=== PATIENT | male | born 1955 | race Caucasian/White ===

== ENCOUNTER 2021-03-26 09:15 | Inpatient (IN) | payer OTHER ==
[2021-03-26] VITALS (22 sets, daily range): BP systolic 136–214; BP diastolic 68–147
[~2021-03-26] VITALS: Ht 180.3 cm; Wt 79.2 kg
--- NOTE | ~2021-03-26 | CON ---
[address] [address] CONSULTATION Name: PILY GUY Room: [place] [address] ADM IN M.R.#: [id number] Admission: 03/26/21 Attend Phys: Norma Lopez Discharge: Date of : 51 Report #: [id number] THIS REPORT FOR: cc: FAM - No family physician/PCP FAM - No family physician/PCP Luis Joya MD ~ DATE OF CONSULTATION: 03/26/2021 HISTORY OF PRESENT ILLNESS: This is a 66-year-old male patient who was seen by me in the Emergency Room. This patient was seen in the Emergency Room by Emergency Room physician for what looks like NIH score of 5. He underwent a CT and CT angiogram. CT is available. CT angiogram is not available. As I understand after discussing indication, potential complication and alternative with the patient, the ER physician gave him TPA. TPA has already infused and the patient is not having any significant side effect. He still has pronounced symptoms in the left upper extremity. Part of it is because of pain, which is nonspecific, but pretty profound weakness there. He had some symptoms in the left leg earlier, but it is difficult to tell because he had back surgery in the past. He had trouble with the knee and there is a wire there, but he had MRI of the back in the past without any problem. That wire was still in when he had MRI of the lumbar spine. REVIEW OF SYSTEMS: He was told a couple of times that he had hypertension. He does not have a family doctor. He does not go to any family doctor. He does not know when his last blood pressure was checked. It was probably long time ago. He does not check it at home or at any pharmacy. That was his relevant 14-point review of systems. PAST MEDICAL HISTORY: Positive for lumbar spine problem. He has mild neck pain. He gives a history that he was up when his symptoms came suddenly. FAMILY HISTORY: Unremarkable. SOCIAL HISTORY: He says he smokes marijuana once in a while because of his back pain. He does not smoke cigarettes. He does not drink alcohol on a regular basis. PHYSICAL EXAMINATION: NEUROLOGIC: He is alert, responsive, able to follow simple and complex command. Cranial nerve examination appear unremarkable. His memory looks unremarkable. He has pretty significant weakness in the left upper extremity, he can move it, but rarely. His neck movements are full and unrestricted. These deficit came suddenly at 8:00. In the left leg, he is somewhat weak than the right side, but I do not know what his baseline is, but the weakness is more pronounced in the left upper extremity. He cannot do [id number] on the left side, [place] [address] CONSULTATION Name: MALENAPILY [place] Room: [address] [place] [facility]#: [id number] Admission: 03/26/21 Attend Phys: Norma Lopez Discharge: Date of : 51 Report #: [id number] also weak there. His sensation is altered, but difficult to tell further because he is also complaining of pain there. I could not look at the fundus. CARDIAC: Appears unremarkable. LUNGS: No respiratory difficulty was noticed. VITAL SIGNS: Blood pressure is 170/80, pulse is 83, temperature is 98.2. LABORATORY DATA: Indicates a normal white count, a normal platelet and a normal PT, PTT. CT showed a question of old CVA. CT angiogram is not available. IMPRESSION AND PLAN: Clinically, it would appear that the patient may have had a lacunar cerebrovascular accident. The unusual feature is that he does have some neck pain and only arm is involved. Because of that, we need to rule out the C-spine pathology. I discussed with the patient ____. I am going to get an MRI of the brain as well as C-spine stat in this patient that will give us some directions where the patient's symptoms are coming from and we can proceed accordingly. Thank you very much for this referral. By: [id number]-pierre Joya MD /rodo
[~2021-03-26 09:15] MED LIST: FLEXERIL PO; NAPROSYN250 MG PO; NOHOMEMEDICATIONS
[2021-03-26 10:04] LABS: ABSOLUTE EOSINOPHILS 0.1 thou/uL (0.0-0.7); ABSOLUTE LYMPHOCYTES 1.9 thou/uL (0.8-5.3); ABSOLUTE MONOCYTES 0.5 thou/uL (0.0-1.2); ABSOLUTE NEUTROPHILS 5.3 thou/uL (1.6-8.1); BASOPHILS 0.5 %; EOSINOPHILS 1.3 %; HEMATOCRIT 46.6 % (42.0-52.0); HEMOGLOBIN 15.9 gm/dL (14.0-18.0); LYMPHOCYTES 24.4 %; MCHC 34.2 g/dL (28.0-37.0); MCV 93.6 fL (80.0-100.0); MONOCYTES 6.7 %; MPV 8.6 fl. (7.2-11.1); NUCLEATED RBCS 0 /100WBC; PLATELET COUNT* 209 thou/uL (150-400); POLYS 67.1 %; RBC 4.97 mil/uL (4.50-6.00); RDW-CV 12.6 % (10.5-14.5); WBC 7.9 thou/uL (4.0-11.0)
[2021-03-26 10:16] LABS: ALBUMIN 4.7 g/dL (3.4-5.0); CALCIUM 9.6 mg/dL (8.5-10.1); POTASSIUM 4.1 mmol/L (3.5-5.1); TOTAL BILIRUBIN 0.7 mg/dL (<0.1-1.0); TOTAL PROTEIN 8.3 g/dL (6.4-8.2)
[2021-03-26 10:24] LABS: APTT 27.2 Seconds (25.0-31.3); INR 1.1; PROTIME 11.3 Seconds (9.20-11.50)
--- NOTE | 2021-03-26 10:40 | EKG ---
[place] [address] ELECTROCARDIOGRAM REPORT Name: PILY GUY Room: [facility]#: [id number] Admission: Attend Phys: Discharge: Date of : 51 Date of Service: 03/26/21928 Report #: [id number] THIS REPORT FOR: //name// [facility] ED Test Date: 2021-03-26 Test Time: 09:29:55 Pat Name: PILY GUY Department: Room: Gender: Retail Security Professional: GUSTAVO : 1955 Requested By: Rubio Richardson Order Number: [id number] MD: Jose Miguel Sharma Measurements Intervals [place] Rate: 80 P: 89 CO: 199 QRS: 62 QRSD: 92 T: 48 QT: 372 QTc: 430 Interpretive Statements Sinus rhythm No previous ECG available for comparison Electronically Signed On 03-26-2021 10:39:46 CDT by Jose Miguel Sharma [email or web address] <ELECTRONICALLY SIGNED> By: Jose Miguel Sharma MD, [facility] 03/26/21 1039 8 0929 Jose Miguel Sharma MD, FACC /EPI
[2021-03-27] VITALS (20 sets, daily range): BP systolic 112–153; BP diastolic 58–81
[2021-03-27 04:01] LABS: ABSOLUTE BASOPHILS 0.1 thou/uL (0.0-0.2); ABSOLUTE EOSINOPHILS 0.1 thou/uL (0.0-0.7); ABSOLUTE LYMPHOCYTES 1.5 thou/uL (0.8-5.3); ABSOLUTE MONOCYTES 0.7 thou/uL (0.0-1.2); ABSOLUTE NEUTROPHILS 8.8 thou/uL (1.6-8.1); BASOPHILS 0.5 %; EOSINOPHILS 0.5 %; HEMOGLOBIN 15.9 gm/dL (14.0-18.0); LYMPHOCYTES 13.1 %; MCH 31.8 pg (26.0-34.0); MCHC 33.8 g/dL (28.0-37.0); MONOCYTES 6.5 %; NUCLEATED RBCS 0 /100WBC; PLATELET COUNT* 214 thou/uL (150-400); POLYS 79.4 %; RDW-CV 13.1 % (10.5-14.5); WBC 11.1 thou/uL (4.0-11.0)
[2021-03-27 04:16] LABS: CALCIUM 9.3 mg/dL (8.5-10.1); CREATININE 0.8 mg/dL (0.6-1.3); MAGNESIUM 2.5 mg/dL (1.8-2.4); PHOSPHORUS* 4.1 mg/dL (2.5-4.9); POTASSIUM 3.7 mmol/L (3.5-5.1)
[2021-03-27 10:25] LABS: CHOLESTEROL 191 mg/dL (<200); HDL CHOLESTEROL 39 mg/dL (>40); LDL CHOLESTEROL 121 mg/dL (<100); SERUM ASSESSMENT Clear; TC:HDL 4.9 Ratio (Not establshd); TRIGLYCERIDE 158 mg/dL (<150); VLDL 32 mg/dL (<40)
--- NOTE | 2021-03-27 13:16 | 2DMMODE ---
[place] [address] 2 D/M-MODE ECHOCARDIOGRAM Name: PILY GUY [place] Room: [address] IN [facility]#: [id number] Admission: 03/26/21 Attend Phys: Joe Treviño Discharge: Date of : 51 Date of Service: 03/27/21 1315 Report #: [id number] THIS REPORT FOR: cc: FAM - No family physician/PCP FAM - No family physician/PCP Mayur Griffith MD [facility] ~ APPROVED REPORT Study performed: 03/27/2021 10:02:24 EXAM: Comprehensive 2D, Doppler, and color-flow Echocardiogram Patient Location: In-Patient Room #: 006 Status: routine BSA: 1.98 HR: 70 bpm BP: 149/74 mmHg Rhythm: NSR Other Information Study Quality: Good Indications CVA/TIA Echo Enhancing Agent Indication: Rule out Shunt Agent(s) / Amount(s) Used: Agitated Saline 10 cc 2D Dimensions IVSd: 8.96 (7-11mm) LVOT Diam: 21.47 (18-24mm) LVDd: 47.54 mm PWd: 8.62 (7-11mm) Ascending Ao: 30.58 (22-36mm) LVDs: 20.15 (25-40mm) Aortic Root: 31.84 mm Volumes Left Atrial Volume (Systole) LA ESV Index: 18.20 mL/m2 Aortic Valve AoV Peak Papito.: 1.37 m/s AO Peak Gr.: 7.50 mmHg LVOT Max P.21 mmHg AO Mean Gr.: 4.66 mmHg LVOT Mean P.42 [place] [address] 2 D/M-MODE ECHOCARDIOGRAM Name: PILY GUY Room: [address] [place] ..#: [id number] Admission: 03/26/21 Attend Phys: Joe Treviño Discharge: Date of : 51 Date of Service: 03/27/21 1315 Report #: [id number] LVOT Max V: 1.14 m/s AO V2 VTI: 26.67 cm LVOT Mean V: 0.71 m/s ERIC (VTI): 2.76 cm2 LVOT V1 VTI: 20.30 cm Mitral Valve E/A Ratio: 0.76 MV Decel. Time: 348.09 ms MV E Max Papito.: 0.56 m/s MV PHT: 100.94 ms MVA (PHT): 2.18 cm2 TDI E/Lateral E': 7.00 E/Medial E': 6.22 Medial E' Papito.: 0.09 m/s Lateral E' Papito.: 0.08 m/s Pulmonary Valve PV Peak Papito.: 1.69 m/s PV Peak Gr.: 11.38 mmHg Left Ventricle The left ventricle is normal size. There is normal LV segmental wall motion. There is normal left ventricular wall thickness. Left ventricular systolic function is normal. LVEF is 65-70%. Grade I - abnormal relaxation pattern. Right Ventricle The right ventricle is normal size. The right ventricular systolic function is normal. Atria The left atrium size is normal. The interatrial septum is intact with no evidence for an atrial septal defect. The right atrium size is normal. Aortic Valve Mild aortic valve sclerosis. No aortic regurgitation is present. There is no aortic valvular stenosis. Mitral Valve The mitral valve is normal in structure. There is no mitral valve regurgitation noted. No evidence of mitral valve stenosis. Tricuspid Valve The tricuspid valve is normal in structure. Unable to assess PA pressure. [place] [address] 2 D/M-MODE ECHOCARDIOGRAM Name: PILY GUY Room: [address]#: [id number] Admission: 03/26/21 Attend Phys: Joe Treviño Discharge: Date of : 51 Date of Service: 03/27/21 1315 Report #: [id number] Pulmonic Valve The pulmonary valve is normal in structure. There is no pulmonic valvular regurgitation. Great Vessels The aortic root is normal in size. IVC is normal in size and collapses >50% with inspiration. Pericardium There is no pericardial effusion. <Conclusion> The left ventricle is normal size. There is normal left ventricular wall thickness. Left ventricular systolic function is normal. LVEF is 65-70%. Grade I - abnormal relaxation pattern. The interatrial septum is intact with no evidence for an atrial septal defect. Trace tricuspid regurgitation. IVC is normal in size and collapses >50% with inspiration. <ELECTRONICALLY SIGNED> By: Mayur Griffith MD, FACC 03/27/21 1315 1315 1315 Mayur Griffith MD, FACC /INF
[2021-03-28] VITALS: BP 137/73
[2021-03-28 04:00] VITALS: BP 121/75
[2021-03-28 07:56] VITALS: BP 145/75
[2021-03-28 12:05] VITALS: BP 131/69
[2021-03-28 18:59] VITALS: BP 154/79
[2021-03-28 20:00] VITALS: BP 151/70
[2021-03-29] VITALS: BP 130/61
[2021-03-29 04:00] VITALS: BP 159/76
[2021-03-29 04:30] LABS: HEMATOCRIT 45.5 % (42.0-52.0); HEMOGLOBIN 15.4 gm/dL (14.0-18.0); MCH 31.9 pg (26.0-34.0); MCHC 33.8 g/dL (28.0-37.0); MCV 94.4 fL (80.0-100.0); MPV 8.5 fl. (7.2-11.1); RBC 4.82 mil/uL (4.50-6.00); RDW-CV 12.6 % (10.5-14.5)
[2021-03-29 05:07] LABS: CREATININE 0.8 mg/dL (0.6-1.3); POTASSIUM 3.7 mmol/L (3.5-5.1)
[2021-03-29] MEDS ORDERED: LIPITOR40 MG PO (09:33)
[2021-03-29] MEDS ORDERED: ADULT LOW DOSE81 MG PO (09:34)
[2021-03-29] MEDS ORDERED: ACETAMINOPHEN325 M1 PO (09:34)
[2021-03-29] MEDS ORDERED: COLACE 100 MG100 MG PO (09:35)
[2021-03-29 12:00] VITALS: BP 154/74
[2021-03-29 16:37] VITALS: BP 148/76
[2021-03-29 20:00] VITALS: BP 120/78
[2021-03-29 23:45] VITALS: BP 111/73
[2021-03-30 05:06] VITALS: BP 125/67
[2021-03-30 08:45] VITALS: BP 122/63
[2021-03-30 12:00] VITALS: BP 144/79
[2021-03-30 21:06] LABS: ANA INTERPRETATION Negative (())
== END 2021-03-30 19:45 | DRG 62 ==
LOC: M.ERS 09:15 → M.2W 10:25 → M.TBA-ER 10:25 → M.ICU 10:25 → M.2W 03-27 20:06
PROVIDERS: Emergency Medicine Emergency Medical Services; Internal Medicine; Psychiatry & Neurology Neuromuscular Medicine; ADMIT Internal Medicine; ATTEND Internal Medicine
DX: I63.9 Cerebral infarction, unspecified (principal); G81.94 Hemiplegia, unspecified affecting left nondominant side; R73.9 Hyperglycemia, unspecified; G89.29 Other chronic pain; M54.9 Dorsalgia, unspecified; M47.812 Spondylosis without myelopathy or radiculopathy, cervical region; R20.2 Paresthesia of skin; R51.9 Headache, unspecified; R26.9 Unspecified abnormalities of gait and mobility; I10 Essential (primary) hypertension; M48.02 Spinal stenosis, cervical region; I63.81 Other cerebral infarction due to occlusion or stenosis of small artery; Z96.651 Presence of right artificial knee joint; F12.90 Cannabis use, unspecified, uncomplicated; Z20.822 Contact with and (suspected) exposure to COVID-19; Z23 Encounter for immunization

== ENCOUNTER 2021-03-30 16:40 | Inpatient (IN) | payer OTHER ==
[~2021-03-30] VITALS: Ht 180.3 cm; Wt 79.2 kg
[~2021-03-30 16:40] MED LIST changes: +ACETAMINOPHEN325 M1 PO; +ADULT LOW DOSE81 MG PO; +COLACE 100 MG100 MG PO; +LIPITOR40 MG PO
[2021-03-30 20:00] VITALS: BP 150/73
[2021-03-31 04:31] LABS: HEMATOCRIT 43.5 % (42.0-52.0); MCH 32.1 pg (26.0-34.0); MCHC 34.5 g/dL (28.0-37.0); MCV 93.2 fL (80.0-100.0); MPV 8.3 fl. (7.2-11.1); RBC 4.67 mil/uL (4.50-6.00); RDW-CV 12.9 % (10.5-14.5); WBC 7.4 thou/uL (4.0-11.0)
[2021-03-31 04:37] LABS: CALCIUM 8.8 mg/dL (8.5-10.1); CREATININE 0.9 mg/dL (0.6-1.3)
[2021-03-31 08:00] VITALS: BP 146/67
[2021-03-31 19:00] VITALS: BP 111/54
[2021-04-01 07:30] VITALS: BP 137/73
[2021-04-01 19:59] VITALS: BP 116/61
[2021-04-02 08:15] VITALS: BP 143/84
[2021-04-02 13:47] VITALS: BP 143/84
[2021-04-02 14:33] VITALS: BP 143/84
== END 2021-04-02 15:45 | disposition home or self-care (01) | DRG 947 ==
LOC: M.REH 16:40
PROVIDERS: ADMIT Physical Medicine & Rehabilitation; ATTEND Physical Medicine & Rehabilitation
DX: R53.81 Other malaise (principal); I63.9 Cerebral infarction, unspecified; I10 Essential (primary) hypertension; G89.29 Other chronic pain; Z96.651 Presence of right artificial knee joint; M54.9 Dorsalgia, unspecified; Z79.82 Long term (current) use of aspirin; Z79.899 Other long term (current) drug therapy